=== PATIENT | female | born 1935 | race Caucasian/White ===

== ENCOUNTER → 2016-05-03 | Outpatient (CLI) | payer OTHER, BC | LOC: FIMAGING 15:11 | DX: Z12.31 Encounter for screening mammogram for malignant neoplasm of breast (principal); Z85.3 Personal history of malignant neoplasm of breast | CPT/HCPCS: G0202 ==

== ENCOUNTER → 2017-05-04 | Outpatient (CLI) | payer OTHER, BC | LOC: FIMAGING 09:07 | PROVIDERS: ATTEND Internal Medicine | DX: Z12.31 Encounter for screening mammogram for malignant neoplasm of breast (principal); Z85.3 Personal history of malignant neoplasm of breast ==

== ENCOUNTER → 2017-11-01 | Outpatient (CLI) | payer OTHER, BC | LOC: BMCIMAGING 10:50 | PROVIDERS: ATTEND Family Medicine | DX: S22.31XA Fracture of one rib, right side, initial encounter for closed fracture (principal) | CPT/HCPCS: 71101-PO ==

== ENCOUNTER → 2018-05-06 | Outpatient (CLI) | payer OTHER, BC | LOC: FIMAGING 09:46 | PROVIDERS: ATTEND Internal Medicine | DX: Z12.31 Encounter for screening mammogram for malignant neoplasm of breast (principal); Z85.3 Personal history of malignant neoplasm of breast ==

== ENCOUNTER 2018-06-16 14:46 | Inpatient (IN) | payer OTHER, BC ==
--- NOTE | 2018-06-16 15:41 | EDPHY ---
H & P Stated Complaint: Right sided rib pain Time Seen by Provider: 06/16/18 15:41 HPI/ROS: HPI CHIEF COMPLAINT: Right-sided sharp stabbing pleuritic pain. HISTORY OF PRESENT ILLNESS: Patient is a 82-year-old female, she has a history of hypertension, thyroid cancer, breast cancer, she presents emergency room with right-sided sharp stabbing chest pain worse when she takes deep breath in. She describes it when she takes deep breath in as sharp stabbing right lower lobe without any radiation. No hemoptysis. No history of DVT or PE. She went to urgent care today was referred to the emergency room for further evaluation. She reports to me every time she takes deep breath in she gets right-sided sharp stabbing chest pain. Past Medical History: History of breast cancer, thyroid cancer, hypertension Past Surgical History: Thyroidectomy Social History: Denies drugs alcohol tobacco Family History: Noncontributory ROS REVIEW OF SYSTEMS: 10 Systems were reviewed and negative with the exception of the elements mentioned in the history of present illness. Exam Constitutional triage nursing summary reviewed, vital signs reviewed, awake/ alert. Eyes normal conjunctivae and sclera, EOMI, PERRLA. HENT normal inspection, atraumatic, moist mucus membranes, no epistaxis, neck supple/ no meningismus, no raccoon eyes. Respiratory clear to auscultation bilaterally, normal breath sounds, no respiratory distress, no wheezing. Cardiovascular rate normal, regular rhythm, no murmur, no edema, distal pulses normal. Gastrointestinal soft, non-tender, no rebound, no guarding, normal bowel sounds, no distension, no pulsatile mass. Genitourinary no CVA tenderness. Musculoskeletal no midline vertebral tenderness, full range of motion, no calf swelling, no tenderness of extremities, no meningismus, good pulses, neurovascularly intact. Skin pink, warm, & dry, no rash, skin atraumatic. Neurologic awake, alert and oriented x 3, AAOx3, moves all 4 extremities equally, motor intact, sensory intact, CN II-XII intact, normal cerebellar, normal vision, normal speech. Psychiatric normal mood/affect. Heme/Lymph/Immune no lymphadenopathy. Differential Diagnosis: Differential diagnosis includes but is not limited to: Pulmonary embolism, pleurisy, pneumonia, ACS, atypical chest pain, pneumothorax, pneumonia, pulmonary embolism, aortic dissection, congestive heart failure, tumor, musculoskeletal pain, esophageal pain, GERD, peptic ulcer disease, pancreatitis Medical Decision Making: Plan for this patient IV establishment IV fluid bolus , basic labs, EKG, site monitor, pulse ox, troponin, D-dimer, CT angiogram of the chest rule out pulmonary embolism. Re-evaluation: EKG interpretation by me on record in [employer] system. Impression time of EKG 1557 sinus rhythm rate of 84, no signs of acute ischemia. Patient has a positive D-dimer 1.49 given the right-sided pleuritic pain will proceed with CT angiogram of the chest. Reason for CT angiogram the chest positive D-dimer pleuritic pain rule out pulmonary embolism. CT angiogram of the chest shows multiple pulmonary emboli. Specifically pulmonary emboli seen in the right upper lobe, right middle lobe and right lower lobe. Called to me by Dr. Yue Blackburn. Additionally this patient has an opacification left upper lobe that needs to be followed outpatient. Spoke with Dr. Bose agrees to admit the patient. Heparin ordered. Patient updated agrees for current treatment plan. Source: Patient - Personal History Current Tetanus/Diphtheria Vaccine: Yes Tetanus Vaccine Date: 2013 - Medical/Surgical History Hx Asthma: No Hx Chronic Respiratory Disease: No Hx Diabetes: No Hx Cardiac Disease: No Hx Renal Disease: No Hx Cirrhosis: No Hx Alcoholism: No Hx HIV/AIDS: No Hx Splenectomy or Spleen Trauma: No Other PMH: hypothyroidism, HTN, thyroid cancer, R breast CA-lumpectomy, high cholesterol - Social History Smoking Status: Never smoked Constitutional: Initial Vital Signs Temperature (C) 36.5 C 06/16/18 14:48 Heart Rate 98 06/16/18 14:48 Respiratory Rate 18 06/16/18 14:48 Blood Pressure 150/82 H 06/16/18 14:48 O2 Sat (%) 91 L 06/16/18 14:48 O2 Delivery Mode Room Air O2 (L/minute) 2 Allergies/Adverse Reactions: bacitracin [From Neosporin ([id number])] Allergy (Intermediate, Verified 14:51) Rash bacitracin zinc [From Neosporin ([id number])] Allergy (Intermediate, Verified 06/16/18 14:51) Rash levofloxacin [From Levaquin] Allergy (Intermediate, Verified 06/16/18 14:51) Other-Enter Comments neomycin sulfate [From Neosporin ([id number])] Allergy (Intermediate, Verified 06/16/18 14:51) Rash polymyxin B [From Neosporin ([id number])] Allergy (Intermediate, Verified 14:51) Rash doxycycline Allergy (Unknown, Verified 06/16/18 14:51) Body aches midazolam HCl [From Versed] Allergy (Unknown, Verified 06/16/18 14:51) Other-Enter Comments SURGICAL TAPES Allergy (Intermediate, Uncoded 06/16/18 14:51) SKIN BREAKS OUT Home Medications: Medication Instructions Recorded Ascorbic Acid [Vitamin C 500 mg 500 mg PO DAILY 06/16/18 (*)] Aspirin EC [Aspirin EC 81 mg (*)] 81 mg PO DAILY 06/16/18 Calcium Carbonate [Tums 500MG (*)] 1,000 mg PO BID 06/16/18 Cetirizine [ZyrTEC 10 mg (*)] 10 mg PO DAILY PRN 06/16/18 Cholecalciferol Vit D3 [Vitamin D3 5,000 units PO DAILY 06/16/18 (*)] Cyanocobalamin [Vitamin B12 (*)] 500 mcg PO DAILY 06/16/18 Fluticasone Nasal [Flonase Nasal 1 sprays NASAL DAILY 06/16/18 [place] (RX)] Folic Acid 120 mcg PO DAILY 06/16/18 Herbals/Supplements -Info Only 1 ea PO DAILY 06/16/18 Levothyroxine [Synthroid 125 mcg 125 mcg PO DAILY06 06/16/18 (*)] Melatonin [Melatonin 3 MG (*)] 3 mg PO HS 06/16/18 Methotrexate Sodium [Rheumatrex] 2.515 mg PO WE 06/16/18 Multivitamins [Multivitamin (*)] 1 each PO DAILY 06/16/18 Nebivolol HCl [Bystolic 5 mg (*)] 2.5 mg PO HS 06/16/18 Nebivolol HCl [Bystolic 5 mg (*)] 5 mg PO DAILY 06/16/18 Zolpidem Tartrate 3.33 mg PO HS PRN 06/16/18 Medical Decision Making - Data Points Laboratory Results: Laboratory Results 06/16/18 16:00 06/16/18 16:00 Medications Given: Fluticasone Propionate (Flonase Nasal [place]) 1 sprays EACHNARE DAILY RADHA Stop: 12/14/18 08:59 Last Admin: 06/17/18 09:30 Dose: Not Given Levothyroxine Sodium (Synthroid) 125 mcg PO DAILY06 [facility]HA Stop: 12/14/18 05:59 Last Admin: 06/17/18 06:07 Dose: 125 mcg Melatonin (Melatonin) 3 mg PO HS [facility] Stop: 12/13/18 20:59 Last Admin: 06/16/18 21:13 Dose: 3 mg Miscellaneous Medication (Folic Acid [Folic Acid]) 120 mcg PO DAILY RADHA Stop: 12/14/18 08:59 Last Admin: 06/17/18 09:30 Dose: Not Given Nebivolol (Bystolic) 2.5 mg PO HS [facility] Stop: 12/13/18 20:59 Last Admin: 06/16/18 21:12 Dose: 2.5 mg Nebivolol (Bystolic) 5 mg PO DAILY RADHA Stop: 12/14/18 08:59 Last Admin: 06/17/18 09:32 Dose: 5 mg Oxycodone HCl (Oxycodone Ir) 5 - 10 mg PO Q3HRS PRN PRN Reason: Pain, Severe Able to Take PO Stop: 06/26/18 19:28 Last Admin: 06/17/18 06:09 Dose: 10 mg Tramadol HCl (Ultram) 50 mg PO Q6HRS [facility] Stop: 12/14/18 11:59 Last Admin: 06/17/18 11:38 Dose: 50 mg Vitamin B Complex (Vitamin B12) 500 mcg PO DAILY [facility] Stop: 12/14/18 08:59 Last Admin: 06/17/18 09:30 Dose: Not Given Discontinued Medications Fentanyl (Sublimaze) 50 mcg IVP ONCE ONE Stop: 06/16/18 18:00 Last Admin: 06/16/18 18:02 Dose: 50 mcg Heparin Sodium (Porcine) (Heparin Injection) 0 unit IVP EDNOW ONE Stop: 06/16/18 17:21 Last Admin: 06/16/18 18:10 Dose: 6,100 unit Sodium Chloride (Ns) 1,000 mls @ 0 mls/hr IV EDNOW ONE; Wide Open PRN Reason: Protocol Stop: 06/16/18 15:46 Last Admin: 06/16/18 16:03 Dose: 1,000 mls Heparin Sodium (Porcine) (Heparin 50 Units/Ml (Premix)) 500 mls @ 0 mls/hr IV EDNOW ONE; Per Protocol PRN Reason: Protocol Stop: 06/16/18 17:21 Last Admin: 06/16/18 18:10 Dose: 500 mls Prednisone (Prednisone) 20 mg PO ONCE ONE Stop: 06/17/18 08:20 Last Admin: 06/17/18 09:32 Dose: 20 mg Point of Care Test Results: Chemistry 06/16/18 16:08 POC Troponin I 0.00 ng/mL ng/mL (0.00-0.08) Departure - Departure Disposition: [facility] Inpatient Acute Clinical Impression: Lung nodule Pulmonary emboli Qualifiers: Pulmonary embolism type: other Chronicity: acute Acute cor pulmonale presence: without acute cor pulmonale Qualified Code(s): I26.99 - Other pulmonary embolism without acute cor pulmonale Condition: Fair
[2018-06-16] MEDS ORDERED: NS 1,000 ML IV ONE (15:45)
[2018-06-16 16:36] LABS: INR 0.99 (0.83-1.16); PROTIME(PATIENT) 12.7 SEC (12.0-15.0)
[2018-06-16 16:38] LABS: PLATELET COUNT 163 10^3/uL (150-400)
[2018-06-16] MEDS ORDERED: IOPAMIDOL (ISOVUE 370) 100 ML BTL IV ONE (16:45)
[2018-06-16] MEDS ORDERED: HEPARIN/DEXTROSE 500 ML IV ONE (17:20)
[2018-06-16] MEDS ORDERED: HEPARIN 10,000 UNIT/10 ML MDV (1,000 UNIT/ML) IVP ONE (17:20)
[2018-06-16] MEDS ORDERED: fentaNYL 100 MCG/2 ML INJ IVP ONE (17:59)
[2018-06-16] MEDS ORDERED: fentaNYL 100 MCG/2 ML INJ ONE (18:00)
[2018-06-16] MEDS ORDERED: HEPARIN 10,000 UNIT/10 ML MDV (1,000 UNIT/ML) IVP PRN (19:26)
[2018-06-16] MEDS ORDERED: ACETAMINOPHEN 325 MG TAB PO PRN (19:29)
[2018-06-16] MEDS ORDERED: traMADol 50 MG TAB PO PRN (19:29)
[2018-06-16] MEDS ORDERED: ONDANSETRON 4 MG/2 ML VIAL IVP PRN (19:29)
[2018-06-16] MEDS ORDERED: HYDROmorphONE/DILAUDID 1 MG/ML INJ IVP PRN (19:29)
[2018-06-16] MEDS ORDERED: HEPARIN/DEXTROSE 500 ML IV SCH (19:30)
--- NOTE | 2018-06-16 20:43 | GHP ---
[f rep st] HISTORY AND PHYSICAL DATE OF ADMISSION: 06/16/2018 CHIEF COMPLAINT: Chest pain. HISTORY: The patient is an 82-year-old female who developed severe pleuritic chest pain in the middl e of the night. She describes it as a right lower sharp stabbing pain. It still hurts very greatly and she cannot take deep breaths. She has shortness of breath due to her difficulty taking deep tegan ths. Chest pain is still persistent at this time. It grabs her. She got IV fentanyl in the emergen cy room. She denies any lower extremity edema. She denies any recent prolonged immobilization. PAST MEDICAL HISTORY: 1. Psoriatic arthritis. 2. Breast cancer status post lumpectomy. 3. Thyroid cancer status post thyroidectomy. 4. Hypertension. 5. Hyperlipidemia. MEDICATIONS: Please see computerized record for full detailed list. ALLERGIES: Levaquin. SOCIAL HISTORY: No smoking. No alcohol. She lives with her . REVIEW OF SYSTEMS: Complete review of systems obtained. Review of systems negative regarding consti tutional, HEENT, GI, pulmonary, cardiovascular, , hematology, skin, musculoskeletal, endocrine, psy ch, except for positives and negatives as in HPI. FAMILY HISTORY: Reviewed and noncontributory to presenting complaint. PHYSICAL EXAMINATION: GENERAL: Well-developed, well-nourished female, in no distress. VITAL SIGNS: Temperature 36.5, pulse 98, blood pressure 150/82, saturating 91% on room air. EYES: Normal conju nctivae. Pupils react to light. ENT: Normal ears and nose. Hearing intact. Normal teeth. Oropha rynx moist. NECK: Trachea midline. No thyromegaly. CHEST: Normal respiratory effort. Lungs clear to auscultation bilaterally. CARDIOVASCULAR: Regular rate and rhythm. No murmur. No lower extremi ty edema. ABDOMEN: Soft and nontender. No hepatosplenomegaly. SKIN: Warm, dry and intact without rash. MUSCULOSKELETAL: No cyanosis or clubbing. Strength 5/5 in upper and lower extremities. DEVI ROLOGIC: Cranial nerves intact. Normal sensation to light touch. PSYCH: Alert and oriented x3. Nor mal mood and affect. Normal judgment and insight. Normal memory. LABORATORY DATA: White count 9.83, hematocrit 47.3, platelets 163. Sodium 135, potassium 3.9, chlor jarred 99, bicarb 30, BUN 17, creatinine 0.7, glucose 118. LFTs are negative. Troponins negative. D-d aliica is positive. CT angiogram of the chest shows bilateral pulmonary emboli with a small nodule not ed incidentally. EKG viewed by me. My personal interpretation is normal sinus rhythm, no ST or T wa ve changes. This case was discussed with Dr. Lane Mosqueda, emergency room provider, regarding ER cou rse. ASSESSMENT/PLAN: 1. Acute bilateral pulmonary emboli. She is having ongoing severe pleuritic chest pain. She is now on an intravenous heparin drip. I will continue this for now, and when she improves she can likely be switched to an oral agent for discharge. We need to treat her pleuritic pain. She does not do we ll with Tylenol or Motrin. Intravenous fentanyl in the emergency room barely took the edge off. I w ill prescribe intravenous Dilaudid and oral oxycodone as needed and I do think her pain needs to be i n much better control prior to consideration of discharge problem. 2. Psoriatic arthritis. Continue methotrexate. 3. Hypertension. Continue Bystolic. CODE STATUS: Full. ADMISSION STATUS: Will admit to observation. Reevaluate tomorrow regarding ongoing need for hospita lization. DVT PROPHYLAXIS: She is low risk now that she is on IV anticoagulation. /[id number]/MODL
[2018-06-16] MEDS: oxyCODONE IR 5 MG TAB PO PRN (21:11)
[2018-06-16] MEDS: NEBIVOLOL HCL 5 MG TAB PO SCH (21:12)
[2018-06-16] MEDS: MELATONIN 3 MG TAB PO SCH (21:13)
[2018-06-17] MEDS: LEVOTHYROXINE 125 MCG TAB PO SCH (06:07)
[2018-06-17] MEDS: oxyCODONE IR 5 MG TAB PO PRN (06:09)
[2018-06-17] MEDS ORDERED: predniSONE 20 MG TAB PO ONE (08:19)
[2018-06-17] MEDS: FLUTICASONE NASAL 120 SPRAYS/16 GM MDI EACHNARE SCH (09:30)
[2018-06-17] MEDS: CYANO/VITAMIN B12 1000 MCG TAB PO SCH (09:30)
[2018-06-17] MEDS: FOLIC ACID PO SCH (09:30)
[2018-06-17] MEDS: NEBIVOLOL HCL 5 MG TAB PO SCH ×2 (09:32→19:53)
--- NOTE | 2018-06-17 09:48 | HOSPPROG ---
Hospitalist Progress Note Assessment/Plan: DIAGNOSES: * Acute pulmonary embolism with severe pleuritic pain -stable pulse blood pressure and respiratory rate here so far * Sleep apnea, some hypoxemia noted during sleep here last night * History of breast cancer and thyroid cancer PLANS: * Continue IV heparin * Continue for 48 hr of inpatient monitoring for stability * Up to chair today and breathing exercises * Test her ability to ambulate from respiratory and hemodynamic standpoint tomorrow and if stable discharge to home on oral med * Will make her tramadol q.6 hours scheduled for pain and keep oxycodone as p.r.n. At this time * Have given 1 dose of prednisone to see if this will help her pleuritic pain * Resume her folic acid as she does take methotrexate * In the outpatient setting she should follow up with primary care and/or Oncology regarding review of her previous known cancers as she now has thromboembolism; also as she has history of nocturnal hypoxemia and we see that here, this might need to be monitored in the outpatient setting once she is sufficiently treated for her PE to see if nocturnal oxygen at home would be recommended * She is supposed to travel to [place] in 8 days, I have suggested she make an appoint with Dr. 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, my review: Sinus Exam: alert oriented relaxed but looks uncomfortable skin warm dry color ok resps not labored lungs clear BSs heart regular abd soft nondistended nontender, bowel sounds present limbs warm, no edema iv site ok Objective: Vital Signs Temp Pulse Resp BP Pulse Ox 36.7 C 77 16 137/74 H 95 06/17/18 07:16 06/17/18 09:32 06/17/18 07:16 06/17/18 09:32 06/17/18 07:16 06/16/18 06/17/18 06/18/18 06:59 06:59 06:59 Intake Total 1000 Output Total 700 Balance 300 PT 12.7 SEC (12.0-15.0) 06/16/18 16:00 INR 0.99 (0.83-1.16) 06/16/18 16:00 ICD10 Worksheet Patient Problems: Problems Problem Status Onset Lung nodule Acute Pulmonary emboli Acute
[2018-06-17] MEDS: traMADol 50 MG TAB PO SCH ×2 (11:38→17:35)
--- NOTE | 2018-06-17 12:22 | ASMTCMCOM ---
CM Note CM Note Notes: Pts case discussed in tx rounds. Pt is a 82 y.o female admitted for multiple PE. Pt and have a trip planned to [place] next Sunday. Pt will most likely not have any d/c needs. Pt will most likely need to get on a blood thinner. CM available for changes. Plan: Independent Date Signed: 06/17/2018 12:21 PM Electronically Signed By:KENN Fair
[2018-06-17] MEDS: CALCIUM CARBONATE 500 MG CHEWABLE TAB PO SCH (19:53)
[2018-06-17] MEDS: MELATONIN 3 MG TAB PO SCH (19:54)
[2018-06-18] MEDS: traMADol 50 MG TAB PO SCH ×4 (00:23→19:17)
[2018-06-18] MEDS: ZOLPIDEM TARTRATE 5 MG TAB PO PRN (00:40)
[2018-06-18] MEDS: LEVOTHYROXINE 125 MCG TAB PO SCH (05:45)
[2018-06-18] MEDS: NEBIVOLOL HCL 5 MG TAB PO SCH ×2 (07:56→21:05)
[2018-06-18] MEDS: CYANO/VITAMIN B12 1000 MCG TAB PO SCH (08:00)
[2018-06-18] MEDS: FLUTICASONE NASAL 120 SPRAYS/16 GM MDI EACHNARE SCH (08:00)
[2018-06-18] MEDS: CALCIUM CARBONATE 500 MG CHEWABLE TAB PO SCH ×2 (08:00→21:06)
[2018-06-18] MEDS: FOLIC ACID PO SCH (08:00)
[2018-06-18] MEDS: APIXABAN 5 MG TAB PO SCH ×2 (11:35→21:05)
[2018-06-18] MEDS ORDERED: DILTIAZEM 25 MG/5 ML VIAL IVP ONE (14:45)
--- NOTE | 2018-06-18 15:46 | HOSPPROG ---
Hospitalist Progress Note Assessment/Plan: DIAGNOSES: * Acute pulmonary embolism with severe pleuritic pain -stable pulse blood pressure and respiratory rate here so far * Sleep apnea, some hypoxemia noted during sleep here last night * History of breast cancer and thyroid cancer * A fib w RVR, became tachycardic with A Fib earlier this morning PLANS: * Transitioned today from IV Heparin to PO Eliquis * S/p 20 mg IVP with improvement in HR from 140's to 60's, will start PO Diltiazem for further rate control * Will make her tramadol q.6 hours scheduled for pain and keep oxycodone as p.r.n. At this time * Resume her folic acid as she does take methotrexate * In the outpatient setting she should follow up with primary care and/or Oncology regarding review of her previous known cancers as she now has thromboembolism; also as she has history of nocturnal hypoxemia and we see that here, this might need to be monitored in the outpatient setting once she is sufficiently treated for her PE to see if nocturnal oxygen at home would be recommended * She is supposed to travel to [place] in 8 days, I have suggested she make an appoint with Dr. Nascimento for this Sunday assess her safety for travel Subjective: Pt reports improving pleuritic pain this aM Objective: Vital Signs Temp Pulse Resp BP Pulse Ox 36.7 C 71 15 98/65 L 87 L 06/18/18 15:11 06/18/18 15:11 06/18/18 15:11 06/18/18 15:11 06/18/18 15:11 Laboratory Results 06/18/18 02:15 06/17/18 06/18/18 06/19/18 05:59 05:59 05:59 Intake Total 1000 1397.4 380 Output Total 700 1700 Balance 300 -302.6 380 PT 12.7 SEC (12.0-15.0) 06/16/18 16:00 INR 0.99 (0.83-1.16) 06/16/18 16:00 - Physical Exam Constitutional: no apparent distress Eyes: PERRL Ears, Nose, Mouth, Throat: moist mucous membranes Cardiovascular: irregularly irregular Respiratory: no respiratory distress Gastrointestinal: soft, non-tender abdomen Skin: warm Musculoskeletal: full muscle strength Neurologic: AAOx3 Psychiatric: interacting appropriately ICD10 Worksheet Patient Problems: Problems Problem Status Onset Lung nodule Acute Pulmonary emboli Acute
[2018-06-18] MEDS: DILTIAZEM 30 MG TAB PO SCH ×2 (17:12→21:05)
[2018-06-18] MEDS: MELATONIN 3 MG TAB PO SCH (21:05)
[2018-06-18] MEDS: DOCUSATE SODIUM 100 MG CAP PO PRN (21:05)
[2018-06-19] MEDS: LEVOTHYROXINE 125 MCG TAB PO SCH (04:18)
[2018-06-19] MEDS: DILTIAZEM 30 MG TAB PO SCH ×2 (04:18→09:25)
[2018-06-19] MEDS: traMADol 50 MG TAB PO SCH ×3 (04:19→15:54)
--- NOTE | 2018-06-19 05:51 | CPEKG ---
Test Reason : OPEN Blood Pressure : / mmHG Vent. Rate : 111 BPM Atrial Rate : 000 BPM P-R Int : 170 ms QRS Dur : 083 ms QT Int : 319 ms P-R-T Axes : 000 042 038 degrees QTc Int : 434 ms Atrial fibrillation Compared with 06/16/2018 AF now present Confirmed by Effie Cook [id number] on 06/19/2018 5:50:41 AM Referred By: Abbie Bose Confirmed By:Effie Cook
[2018-06-19] MEDS: APIXABAN 5 MG TAB PO SCH ×2 (08:10→20:51)
[2018-06-19] MEDS: CYANO/VITAMIN B12 1000 MCG TAB PO SCH (08:18)
[2018-06-19] MEDS: FLUTICASONE NASAL 120 SPRAYS/16 GM MDI EACHNARE SCH (08:18)
[2018-06-19] MEDS: CALCIUM CARBONATE 500 MG CHEWABLE TAB PO SCH ×2 (08:18→20:49)
[2018-06-19] MEDS: FOLIC ACID PO SCH (08:18)
[2018-06-19] MEDS: DOCUSATE SODIUM 100 MG CAP PO PRN (09:26)
[2018-06-19] MEDS: NEBIVOLOL HCL 5 MG TAB PO SCH (10:19)
[2018-06-19] MEDS ORDERED: BISACODYL 10 MG SUPP PR PRN (12:36)
[2018-06-19] MEDS ORDERED: MAGNESIUM HYDROXIDE 30 ML UDCUP PO PRN (12:36)
[2018-06-19] MEDS ORDERED: POLYETHYLENE GLYCOL 3350 17 GM PKT PO PRN (12:36)
[2018-06-19] MEDS ORDERED: LACTULOSE 20 GM/30 ML UDCUP PO PRN (12:36)
[2018-06-19] MEDS: SENNOSIDES/DOCUSATE SODIUM TAB PO SCH ×2 (12:59→20:50)
--- NOTE | 2018-06-19 14:17 | HOSPPROG ---
Hospitalist Progress Note Assessment/Plan: DIAGNOSES: * Acute pulmonary embolism with severe pleuritic pain -stable pulse blood pressure and respiratory rate here so far * Sleep apnea, some hypoxemia noted during sleep here last night * History of breast cancer and thyroid cancer * A fib w RVR, became tachycardic with A Fib on 06/18 PLANS: * Transitioned on 06/18 from IV Heparin to PO Eliquis 10 mg BID for 1 week then 5 mg BID * S/p 20 mg IVP with improvement in HR from 140's to 60's, started PO Diltiazem for further rate control, awaiting cardiology consultation * Will make her tramadol q.6 hours scheduled for pain and keep oxycodone as p.r.n. At this time * Resume her folic acid as she does take methotrexate * In the outpatient setting she should follow up with primary care and/or Oncology regarding review of her previous known cancers as she now has thromboembolism; also as she has history of nocturnal hypoxemia and we see that here, this might need to be monitored in the outpatient setting once she is sufficiently treated for her PE to see if nocturnal oxygen at home would be recommended * She is supposed to travel to [place] in 8 days, I have suggested she make an appoint with Dr. Nascimento for this Sunday assess her safety for travel Subjective: Pt reports episode of dizziness this AM Objective: Vital Signs Temp Pulse Resp BP Pulse Ox 37.1 C 81 16 115/61 88 L 06/19/18 12:00 06/19/18 12:00 06/19/18 12:00 06/19/18 12:00 06/19/18 12:00 Laboratory Results 06/18/18 02:15 06/18/18 06/19/18 06/20/18 05:59 05:59 05:59 Intake Total 1397.4 1520 Output Total 1700 400 Balance -302.6 1120 PT 12.7 SEC (12.0-15.0) 06/16/18 16:00 INR 0.99 (0.83-1.16) 06/16/18 16:00 - Physical Exam Eyes: PERRL Ears, Nose, Mouth, Throat: moist mucous membranes Cardiovascular: irregularly irregular Respiratory: no respiratory distress Gastrointestinal: soft, non-tender abdomen Genitourinary: no bladder fullness Musculoskeletal: full muscle strength Neurologic: AAOx3 Psychiatric: interacting appropriately ICD10 Worksheet Patient Problems: Problems Problem Status Onset Lung nodule Acute Pulmonary emboli Acute
[2018-06-19] MEDS ORDERED: DILTIAZEM 25 MG/5 ML VIAL IVP ONE (15:15)
[2018-06-19] MEDS: DILTIAZEM 60 MG TAB PO SCH ×2 (15:47→20:50)
[2018-06-19] MEDS ORDERED: traMADol 50 MG TAB PO PRN (16:49)
[2018-06-19] MEDS ORDERED: METHOTREXATE 2.5 MG TAB PO SCH (19:27)
[2018-06-19] MEDS: MELATONIN 3 MG TAB PO SCH (20:50)
[2018-06-19] MEDS: METOPROLOL TARTRATE 25 MG TAB PO SCH (21:54)
--- NOTE | 2018-06-19 22:02 | GCON ---
[f rep st] CONSULTATION CARDIOLOGY CONSULTATION DATE OF CONSULTATION: 06/19/2018 REFERRING PHYSICIAN: Monster Montgomery DO INDICATION FOR CONSULTATION: New onset of atrial fibrillation with rapid ventricular response in the setting of newly diagnosed bilateral pulmonary emboli. HISTORY OF PRESENT ILLNESS: The patient is a pleasant 82-year-old female with a known history of pso riatic arthritis; breast cancer, status post lumpectomy in 1995; history of thyroid cancer, status po st thyroidectomy in 1975; hypertension; and hyperlipidemia; who was in her usual state of health [facility] the evening of June 16, 2018, when she developed acute onset of sharp, stabbing chest pain exacerb ated by deep inspiration and complaints of shortness of breath. She presented to [facility] for further evaluation. CTA of the chest demonstrated acute bilateral pulmonary emboli. She was admitted for further evaluation. She was started on anticoagulation with Eliquis 10 mg p.o. b.i.d. On the morning of June 18, 2018, she developed new onset of atrial fibrillation with rapid ventricul ar response. She was started on IV diltiazem, as well as oral at 60 mg p.o. q.6 hours. In discussing with the patient, she states that over the last several months she has had several epis odes where she did not feel well for several hours. She denies any palpitations, dizziness, lighthea dedness, near syncope or syncope. No associated shortness of breath. She is wondering whether these symptoms may have represented paroxysms of atrial fibrillation. She has no previous history of AFib . Currently, at the time of my exam, she is resting comfortably. She is in rate-controlled atrial fibr illation. She has no complaints of shortness of breath, or dyspnea. Her complaints of pleuritic anatoly st pain have resolved. She denies any complaints of exertional chest pain. She is active. She is in a hiking group and has no exertional symptoms. MEDICATIONS: At time of admission include Bystolic 5 mg daily. Flonase nasal spray daily, vitamin B 12 500 mcg daily, Zyrtec 10 mg p.o. daily p.r.n., vitamin C 500 mg daily, multivitamin daily, melaton in 3 mg p.o. q.h.s., vitamin D3 5000 units daily, Tums 500 mg tablets 2 tablets b.i.d., folic acid 12 0 mcg daily, methotrexate 2.515 mg mg p.o. q. Wednesdays, Ambien 3.33 mg p.o. q.h.s., Synthroid 125 m cg daily, aspirin 81 mg daily, Ultram 50 mg p.o. q.6 hours. ALLERGIES: To medications include bacitracin, levofloxacin, neomycin, polymyxin, doxycycline, Versed , and surgical tapes. PAST MEDICAL HISTORY: Notable for psoriatic arthritis, breast cancer, thyroid cancer, hypertension, hyperlipidemia. CHADS-VASc score of 3 based off age, gender, and history of hypertension. SOCIAL HISTORY: She is . She lives with her . She is a lifelong nonsmoker. She does not drink alcohol. PHYSICAL EXAMINATION: GENERAL: She is awake, alert, oriented, appropriate. No apparent distress. VITAL SIGNS: Blood pressure of 115/61, heart rate 81 in atrial fibrillation, respiratory rate of 16, oxygen saturation 88% on room air, temperature 37.1. NECK: There is no evidence of JVP or carotid bruits. CARDIAC: S1, S2. Irregular, irregular consistent with atrial fibrillation. No murmurs, ru bs, or gallops. ABDOMEN: Soft, nontender, nondistended. There is no evidence of cyanosis, clubbing or edema. DATA REVIEWED: White blood cell count 9.8, hemoglobin 15.9, hematocrit 47.3, platelet count 163. So dium 135, potassium 3.9, chloride 99, bicarb 30, BUN 17, creatinine 0.7, magnesium 2.0, AST 24, ALT 3 4. N-terminal proBNP 213. ECG from June 18, 2018, at 1735, demonstrates atrial fibrillation with rapid ventricular response. Normal axis. Normal R-wave progression. No evidence of ischemia. IMPRESSION: 1. Acute onset of bilateral pulmonary emboli. 2. New onset of atrial fibrillation with rapid ventricular response. 3. Nocturnal hypoxia with findings suggestive of obstructive sleep apnea. 4. Hypertension. PLAN: 1. Focus on rate control and anticoagulation only. No indication for cardioversion at this time. W ould not recommend cardioversion in the setting of acute bilateral pulmonary emboli. 2. Recommend complete 2D echocardiogram. 3. Continue Eliquis 10 mg p.o. b.i.d., then decrease to 5 mg p.o. b.i.d. 4. Discontinue Bystolic. 5. Continue diltiazem 60 mg p.o. q.6 hours. 6. Add metoprolol tartrate 12.5 mg p.o. b.i.d. 7. We will monitor on telemetry for 24 more hours and then plan for discharge home if she remains st able. 8. She will require outpatient cardiology followup, as well as workup with Lexiscan nuclear stress t esting and evaluation for obstructive sleep apnea. 9. Recommend she keep her followup with her primary care physician, Dr. Kelly Nascimento, scheduled for th is Thursday, June 21, 2018. 10. We will continue to follow along with her care. /[id number]/MODL
[2018-06-20] MEDS: LEVOTHYROXINE 125 MCG TAB PO SCH (05:01)
[2018-06-20] MEDS: DILTIAZEM 60 MG TAB PO SCH ×4 (05:01→21:46)
[2018-06-20] MEDS: METOPROLOL TARTRATE 25 MG TAB PO SCH ×2 (08:10→21:46)
[2018-06-20] MEDS: CYANO/VITAMIN B12 1000 MCG TAB PO SCH (08:11)
[2018-06-20] MEDS: APIXABAN 5 MG TAB PO SCH ×2 (08:11→21:45)
[2018-06-20] MEDS: CALCIUM CARBONATE 500 MG CHEWABLE TAB PO SCH ×2 (08:12→21:47)
[2018-06-20] MEDS: FOLIC ACID PO SCH (08:13)
[2018-06-20] MEDS: SENNOSIDES/DOCUSATE SODIUM TAB PO SCH (08:13)
[2018-06-20] MEDS: FLUTICASONE NASAL 120 SPRAYS/16 GM MDI EACHNARE SCH (08:14)
--- NOTE | 2018-06-20 09:46 | PDCARPN ---
Cardiology Progress Note Assessment/Plan: Assessment: -Presented with acute bilateral Pulmonary emboli on admission -New onset afib wihr rVR since admission Plan: -Increase Metoprolol Tartrate to 25 mg bid -Continue Diltiazem 60 mg q 6 hours -Echo pending today -Continue Eliquis 10 mg bid -Pt needs improved rate control before discharge -Rec she cancel plans to travel to [place] next week. 06/20/18 09:47 Subjective: Marianna continues to have Afib with RVR. Rates elevated at night. She has noted increased sob and dyspnea with ambulation to the bathroom. Tele demonstrates rates in the mid 90's now. Tolerating Eliquis 10 mg bid. NO bleeding issues. Reviewed/Discussed With: multidisciplinary team Objective: Vital Signs (8 Hrs) Temp Pulse Resp BP Pulse Ox 06/20/18 07:59 37.1 C 99 22 H 112/71 96 06/20/18 04:00 36.7 C 112 H 15 123/95 H 96 Intake/Output (24 Hrs) 06/19/18 06/20/18 06/21/18 05:59 05:59 05:59 Intake Total 900 480 Output Total 300 125 Balance 600 355 Intake: Oral (ml) 900 480 Output: Urine (ml) 300 125 Bedside Commode 300 125 Other: Number of Stools Toilet 1 Result Diagrams: 06/18/18 02:15 06/16/18 16:00 - Physical Exam Cardiovascular: no murmurs, no rubs, no gallops, irregularly irregular, other ( NO LE edema ) Peripheral Pulses: 2+: carotid (R), carotid (L) Respiratory: clear to auscultate bilat Neurologic: AAOx3, CN II-XII grossly intact Psychiatric: cooperative, interactive, following commands ICD10 Worksheet Patient Problems: Problems Problem Status Onset Lung nodule Acute Pulmonary emboli Acute
[2018-06-20] MEDS ORDERED: METOPROLOL TARTRATE 25 MG TAB PO ONE (10:00)
--- NOTE | 2018-06-20 11:52 | PDHOMEO2F ---
Home Oxygen Face to Face Home Orders: I certify that a physician or a nurse practitioner or physician's veterinarian assistant has had a [id number] encounter with this patient on the date of this order due to the diagnosis listed, which relates to the primary reason the patient requires home oxygen. Alternative treatments have been tried, or considered, and deemed ineffective. It is anticipated that supplemental oxygen will result in improvement with treatment. Home oxygen qualifying diagnosis: Pulmonary Embolis Home oxygen secondary diagnosis: A Fib SpO2 on room air (%): 85 Frequency of home oxygen needed: continuous Home oxygen liters per minute: 2 Home oxygen delivery device: nasal cannula Concentrator: Yes E-tanks for mobility and back up: Yes If ordering portable O2, is the patient mobile in the home?: Yes I certify that, based on these findings, the home oxygen is medically necessary for this patient for the following length of time. Length of time home oxygen needed: 99 years
--- NOTE | 2018-06-20 12:58 | PDMN ---
Medical Necessity Medical necessity: Change to IP, as of 06/19/18, per MD & MCG M-290; los >2 mn for ongoing management of PE w/new-onset AFIB w/RVR; requiring further monitoring, Cardiology consult & med management; comorbid advanced age
--- NOTE | 2018-06-20 13:15 | ECHO ---
[email or web address] [address] [address] Main: [phone] Echocardiography Examination Transthoracic Name: BRANDON HARRIS MR#: [id number] Study Date: 06/20/2018 Study Time: 10:45 AM Date of : 1935 Age: 82 year(s) Height: 175.3 cm (69 in.) Weight: 75.3 kg (166 lb.) BSA: 1.91 m2 Gender: Female Examination: Echo Contrast: Image Quality: Adequate Rhythm: Heart Rate: BP: 112 mmHg/71 mmHg Indication: a fib, PE Procedure Staff Referring Physician: Development Rep: Reena Pimentel [facility] Reading Physician: Aman Middleton MD Requesting Provider: Ordering Physician: Monster Montgomery Indication: a fib, PE Measurements Chambers AV/MV Label Value Normal Value Label Value Normal Value LVOTd 1.9 cm (1.8cm - 2cm) AV PGmax 6 mmHg LVOT VTI 17.6 cm (18cm - 22cm) AV PGmean 4 mmHg LVDd, 2D 4 cm (3.9cm - 5.3cm) AV Vmax 1.24 m/s LVDs, 2D 3.1 cm (2.1cm - 4cm) CHICO (VTI) 1.7 cm2 IVSd, 2D 1.1 cm (0.6cm - 1.1cm) MV E Vmax 1.01 m/s LVPWd, 2D 1 cm MV DT 190 ms LVEF, BP 66 % (55% - 70%) MV PHT 0.06 s LVEF, 2D 49 % (54% - 74%) MVA PHT 3.7 cm2 LVOT PGmean 2 mmHg MR Vmax 4.72 m/s LVOT Vmean 0.7 m/s MR VTI 131 cm RVDd, 2D 3.3 cm (1.9cm - 3.8cm) MV PHT 60 ms LADs, 2D 4 cm (2.7cm - 3.8cm) TV/PV RA Area 14.2 cm2 Label Value Normal Value Additional Vessels RA Pressure 5 mmHg Label Value Normal Value RVSP 35 mmHg AoAsc 2.9 cm TR Pmax 30 mmHg AoRoot, 2D 3.1 cm (1.4cm - 2.6cm) TR Vmax 2.76 m/s IVC 1.8 cm (1.2cm - 2.3cm) PV PGmax 2 mmHg PV Vmax, Caliper 0.64 m/s (0.6m/s - 0.9m/s) Patient: BRANDON HARRIS Study Date: 06/20/2018 Page 1 of 3 10:45 AM Conclusions Left Ventricle: Left ventricle is normal in size. The ejection fraction, measured by Simpsons method, is 66 %. Right Ventricle: Right ventricular systolic function is normal. Mitral Valve: Mild to moderate mitral regurgitation. Aortic Valve: Aortic leaflets are structurally normal. Tricuspid Valve: Mild tricuspid regurgitation. Right Ventricular systolic pressure is measured at 35 mmHg. IVC: The inferior vena cava is normal in size. Pericardium: No pericardial effusion. Findings Left Ventricle: Left ventricle is normal in size. Normal global systolic left ventricular function. The ejection fraction, measured by Simpsons method, is 66 %. There are no regional wall motion abnormalities. Unable to assess Diastolic Dysfunction due to atrial fibrillation/a flutter. There is a sigmoid shaped septum is present, which is a normal finding in the elderly. . Right Ventricle: Normal size right ventricle. Right ventricular systolic function is normal. Left Atrium: The left atrium is normal in size. Right Atrium: The right atrium is normal in size. Mitral Valve: Mitral valve appears structurally normal. Mild to moderate mitral regurgitation. There is mitral annular calcification. Aortic Valve: Aortic leaflets are structurally normal. Trivial aortic regurgitation is present. There is no aortic stenosis. Tricuspid Valve: Tricuspid valve leaflets are structurally normal. Mild tricuspid regurgitation. No tricuspid valve stenosis. Right Ventricular systolic pressure is measured at 35 mmHg. Pulmonary artery pressure is mildly increased. Pulmonic Valve: Pulmonic valve not well visualized. Aorta: The aortic root size in 2D measures 3.1 cm. The ascending aorta measures 2.9 cm. Aorta Measurements AoRoot, 2D is 3.1 cm. IVC: The inferior vena cava is normal in size. Pericardium: Patient: BRANDON HARRIS Study Date: 06/20/2018 Page 2 of 3 10:45 AM No pericardial effusion. No pleural effusion present. Exam Details Procedure Ordered: Echo Procedure Status: Routine study Image Quality: Adequate Facility Location: Cardiac Echo 1 (No Signature Object) Patient: BRANDON HARRIS Study Date: 06/20/2018 Page 3 of 3 10:45 AM [id number]
[2018-06-20] MEDS: FOLIC ACID 400 MCG PO SCH (15:31)
[2018-06-20] MEDS: UBIDECARENONE PO SCH (15:31)
[2018-06-20] MEDS: MULTIVITAMINS 1 EACH TAB PO SCH (15:31)
--- NOTE | 2018-06-20 16:18 | HOSPPROG ---
Hospitalist Progress Note Assessment/Plan: DIAGNOSES: * Acute pulmonary embolism with severe pleuritic pain -stable pulse blood pressure and respiratory rate here so far * Sleep apnea, some hypoxemia noted during sleep here last night * History of breast cancer and thyroid cancer * A fib w RVR, became tachycardic with A Fib on 06/18 PLANS: * Transitioned on 06/18 from IV Heparin to PO Eliquis 10 mg BID for 1 week then 5 mg BID * S/p 20 mg IVP with improvement in HR from 140's to 60's, started PO Diltiazem for further rate control on 06/19, increased to 60 mg QID * Cardiology consulted, recommend increasing Metoprolol 25 mg BID * TTE performed today with no significant findings * Will make her tramadol q.6 hours scheduled for pain and keep oxycodone as p.r.n. At this time * Resume her folic acid as she does take methotrexate * In the outpatient setting she should follow up with primary care and/or Oncology regarding review of her previous known cancers as she now has thromboembolism; also as she has history of nocturnal hypoxemia and we see that here, this might need to be monitored in the outpatient setting once she is sufficiently treated for her PE to see if nocturnal oxygen at home would be recommended * She is supposed to travel to [place] in 8 days, this trip has been canceled Subjective: Pt reports some palpitations this morning Objective: Vital Signs Temp Pulse Resp BP Pulse Ox 36.9 C 85 16 127/72 H 94 06/20/18 11:52 06/20/18 11:52 06/20/18 11:52 06/20/18 11:52 06/20/18 11:52 06/19/18 06/20/18 06/21/18 05:59 05:59 05:59 Intake Total 900 480 Output Total 300 375 Balance 600 105 PT 12.7 SEC (12.0-15.0) 06/16/18 16:00 INR 0.99 (0.83-1.16) 06/16/18 16:00 - Physical Exam Constitutional: no apparent distress Eyes: PERRL Ears, Nose, Mouth, Throat: moist mucous membranes Cardiovascular: irregularly irregular, tachycardia Respiratory: no respiratory distress Gastrointestinal: soft, non-tender abdomen Skin: warm Musculoskeletal: full muscle strength Neurologic: AAOx3 Psychiatric: interacting appropriately ICD10 Worksheet Patient Problems: Problems Problem Status Onset Lung nodule Acute Pulmonary emboli Acute
[2018-06-20] MEDS: MELATONIN 3 MG TAB PO SCH (21:46)
[2018-06-20] MEDS: ZOLPIDEM TARTRATE 5 MG TAB PO PRN ×2 (23:32)
[2018-06-21] MEDS: SENNOSIDES/DOCUSATE SODIUM TAB PO SCH ×2 (02:22→07:36)
[2018-06-21] MEDS: LEVOTHYROXINE 125 MCG TAB PO SCH (03:33)
[2018-06-21] MEDS: DILTIAZEM 60 MG TAB PO SCH ×3 (03:33→14:55)
[2018-06-21] MEDS: FOLIC ACID 400 MCG PO SCH (07:29)
[2018-06-21] MEDS: MULTIVITAMINS 1 EACH TAB PO SCH (07:29)
[2018-06-21] MEDS: APIXABAN 5 MG TAB PO SCH (07:30)
[2018-06-21] MEDS: UBIDECARENONE PO SCH (07:30)
[2018-06-21] MEDS: CYANO/VITAMIN B12 1000 MCG TAB PO SCH (07:31)
[2018-06-21] MEDS: METOPROLOL TARTRATE 25 MG TAB PO SCH (07:31)
[2018-06-21] MEDS: CALCIUM CARBONATE 500 MG CHEWABLE TAB PO SCH (07:32)
[2018-06-21] MEDS: FLUTICASONE NASAL 120 SPRAYS/16 GM MDI EACHNARE SCH (07:36)
--- NOTE | 2018-06-21 07:47 | CPEKG ---
Test Reason : OPEN Blood Pressure : / mmHG Vent. Rate : 084 BPM Atrial Rate : 084 BPM P-R Int : 139 ms QRS Dur : 088 ms QT Int : 377 ms P-R-T Axes : 062 026 043 degrees QTc Int : 446 ms Sinus rhythm Confirmed by Maximo Ochoa ([id number]) on 06/21/2018 7:46:05 AM Referred By: Abbie Bose Confirmed By:Maximo Ochoa
--- NOTE | 2018-06-21 08:59 | PDCARPN ---
Cardiology Progress Note Assessment/Plan: Assessment: -Presented with acute bilateral Pulmonary emboli on admission -New onset afib wihr rVR since admission Plan: -Increase Metoprolol Tartrate to 50 mg bid -Continue Diltiazem 60 mg q 6 hours -Continue Eliquis 10 mg bid (oomplete one week then decrease eliquis to 5 mg bid in setting of CHADS VASC of 3) -She will need letter for Airline to recover cost of flight to [place] -Consider discharge pending rate of Afib -Arrange follow up with me at [facility] in 2 weeks. 06/20/18 09:47 06/21/18 09:00 Subjective: Marianna is feeling better this AM. Notes much less heart pounding and racing. No dizziness, lightheadedness or syncope. No sob. Tele demosntrates Afib. Rates have improved but remain sub optimally controlled. She remains on Eliquis 10 mg PO Bid. Time Spent with Patient: greater than 25 minutes Time Spent with Patient: Greater than 25 minutes spent on this patients care, greater than 50% of time spent counseling, educating, and coordinating care regarding the above mentioned plan. Objective: Vital Signs (8 Hrs) Temp Pulse Resp BP Pulse Ox 06/21/18 07:31 117 H 06/21/18 06:45 36.8 C 91 18 119/72 96 06/21/18 04:00 36.8 C 100 18 126/86 H 96 Intake/Output (24 Hrs) 06/20/18 06/21/18 06/22/18 05:59 05:59 05:59 Intake Total 900 1250 360 Output Total 300 825 Balance 600 425 360 Intake: Oral (ml) 900 1250 360 Output: Urine (ml) 300 825 Bedside Commode 300 425 Toilet 400 Other: Number of Voids Bedside Commode 15 1 Toilet 2 1 Number of Stools Toilet 1 3 1 Result Diagrams: 06/18/18 02:15 06/16/18 16:00 - Physical Exam Constitutional: no apparent distress Cardiovascular: no murmurs, no rubs, no gallops, irregularly irregular Peripheral Pulses: 2+: carotid (R), carotid (L) Respiratory: clear to auscultate bilat Gastrointestinal: normoactive bowel sounds Neurologic: AAOx3, CN II-XII grossly intact Psychiatric: cooperative, interactive, following commands ICD10 Worksheet Patient Problems: Problems Problem Status Onset Lung nodule Acute Pulmonary emboli Acute
[2018-06-21] MEDS ORDERED: METOPROLOL TARTRATE 25 MG TAB PO ONE (09:45)
[2018-06-21 11:09] VITALS: BP 116/74
--- NOTE | 2018-06-21 12:01 | ASMTCMCOM ---
CM Note CM Note Notes: 06/21/2018 Case Management Note Met w/pt to discuss d/c needs. Pt Joaquim [phone] to transport pt home upon d/c. Pt reports MD recommends appointments in 2 weeks with cardiology and PCP in a month. Pt is ambulating without difficulty. O2 has been delivered to room by [facility]. There are no case management d/c needs identified. Case Management d/c poc: independent with follow up as directed. Date Signed: 06/21/2018 12:00 PM Electronically Signed By:Vicky Esteban RN
--- NOTE | 2018-06-21 16:29 | ASDISCHSUM ---
Discharge Information Plan Status:Home with No Needs Medically Cleared to Leave:06/21/2018 Discharge Date:06/21/2018 02:56 PM CM D/C Disposition:Home, Routine, Self-Care ADT D/C Disposition:Home, Routine, Self-Care Projected Discharge Date:06/21/2018 02:56 PM Transportation at D/C: Discharge Delay Reason: Follow-Up Date:06/21/2018 02:56 PM Discharge Slot: Final Diagnosis: Placement Information Patient Contact Information Contact Name:DEVON Relationship: Address:[address] Work Phone: City:[place] Alternate Phone: State/Zip Code:[place] [address] Email: Financial Information Financial Class:Medicare Primary Plan Desc:MEDICARE INPATIENT Primary Plan Number:[id number] Secondary Plan Desc:[employer] [facility] Secondary Plan Number:[id number] Assessment Information LACE LACE Length of stay for Answers: 2 days current admission Acuity / Level of Answers: Yes Care: Did the patient have an inpatient admission? Comorbidities - select Answers: Any tumor (including all that apply lymphoma or leukemia) Other Notes: HTN; HLD # of Emergency department Answers: 1-2 visits in the last 6 months Score: 9 Date Signed: 06/21/2018 04:28 PM Electronically Signed By:Vicky Esteban [facility] CM Progress Note CM Note CM Note Notes: Pts case discussed in tx rounds. Pt is a 82 y.o female admitted for multiple PE. Pt and have a trip planned to [place] next Sunday. Pt will most likely not have any d/c needs. Pt will most likely need to get on a blood thinner. CM available for changes. Plan: Independent Date Signed: 06/17/2018 12:21 PM Electronically Signed By:KENN [facility] CM Progress Note CM Note CM Note Notes: 06/21/2018 Case Management Note Met w/pt to discuss d/c needs. Pt Joaquim [phone] to transport pt home upon d/c. Pt reports MD recommends appointments in 2 weeks with cardiology and PCP in a month. Pt is ambulating without difficulty. O2 has been delivered to room by [facility]. There are no case management d/c needs identified. Case Management d/c poc: independent with follow up as directed. Date Signed: 06/21/2018 12:00 PM Electronically Signed By:Vicky Esteban RN Intervention Information Intervention Type:*VITA-Signed Date of Service:06/17/2018 10:43 AM Patient Type:Observation Staff Member:Maria D Sanford Hours: Discipline: Severity: Comment:
--- NOTE | 2018-06-21 16:33 | PDDCSUM ---
Discharge Summary Discharge Summary: Date of Admission: 06/19/2018 Date of Discharge: 06/21/2018 Consults: Cardiology Procedures: CTA Chest, TTE Followup: Cardiology, PCP Hospital Course Problem List: DIAGNOSES: * Acute pulmonary embolism with severe pleuritic pain -stable pulse blood pressure and respiratory rate * Sleep apnea, some hypoxemia noted during sleep here last night * History of breast cancer and thyroid cancer * A fib w RVR, became tachycardic with A Fib on 06/18 PLANS: * Transitioned on 06/18 from IV Heparin to PO Eliquis 10 mg BID for 1 week then 5 mg BID * S/p 20 mg IVP with improvement in HR from 140's to 60's, started PO Diltiazem for further rate control on 06/19, increased to 60 mg QID, transitioned to 240 mg qd, also started on Metoprolol, uptitrated to 50 mg BID upon discharged * Cardiology consulted, anti-arrythymics as above * TTE performed with no significant findings * Tramadol q.6 hours PRN for pain * Resume her folic acid as she does take methotrexate * In the outpatient setting she should follow up with primary care and/or Oncology regarding review of her previous known cancers as she now has thromboembolism; also as she has history of nocturnal hypoxemia and we see that here, this might need to be monitored in the outpatient setting once she is sufficiently treated for her PE to see if nocturnal oxygen at home would be recommended * She is supposed to travel to [place] in 8 days, this trip has been canceled Time spent on discharge was >35 minutes with >50% of time spent on patient education and counseling.
[2018-06-21] MEDS ORDERED: METOPROLOL TARTRATE 50 MG TAB PO SCH (21:00)
[2018-06-22] MEDS ORDERED: DILTIAZEM XR 240 MG CAP PO SCH (09:00)
== END 2018-06-21 14:56 | disposition home or self-care (01) | DRG 176 ==
LOC: F2W 18:35 → OBSVTOIN 06-19 14:41
PROVIDERS: ADMIT Internal Medicine; ATTEND Internal Medicine
DX: I26.99 Other pulmonary embolism without acute cor pulmonale (principal); I48.91 Unspecified atrial fibrillation; G47.33 Obstructive sleep apnea (adult) (pediatric); I10 Essential (primary) hypertension; E78.5 Hyperlipidemia, unspecified; L40.50 Arthropathic psoriasis, unspecified; Z85.3 Personal history of malignant neoplasm of breast; Z85.850 Personal history of malignant neoplasm of thyroid
CPT/HCPCS: 84484-ER; 85520-90; 96365; G0378; J1644; J3010; J7512; Q9967

== ENCOUNTER → 2018-06-16 | Outpatient (CLI) | payer OTHER, BC | LOC: BMCIMAGING 12:12 | PROVIDERS: ATTEND Emergency Medicine | DX: R07.81 Pleurodynia (principal) | CPT/HCPCS: 71101-PO ==

== ENCOUNTER → 2018-07-04 | Outpatient (CLI) | payer OTHER, BC | LOC: BHFA 10:30 | PROVIDERS: ATTEND Internal Medicine Cardiovascular Disease | DX: E78.5 Hyperlipidemia, unspecified (principal); I10 Essential (primary) hypertension ==

== ENCOUNTER → 2018-08-29 | Outpatient (CLI) | payer OTHER, BC | LOC: FIMAGING 09:33 ==